=== PATIENT | female | born 1985 | race Caucasian/White ===

== ENCOUNTER 2023-07-09 13:23 | Inpatient (IN) ==
[2023-07-09] MEDS ORDERED: Nalbuphine 10 MG/ML 1 ML VIAL IV PRN (14:51)
[2023-07-09] MEDS ORDERED: Prochlorperazine 5 mg/ml 2 ml VIAL (10 mg) IV PRN (14:51)
[2023-07-09] MEDS ORDERED: Buffered Lidocaine 1% SYRIN 1 ml INTRADERM ONE (14:51)
[2023-07-09 16:30] LABS: Urine Benzodiazepine Screen None Detected (None Detect); Urine Cannabinoids Screen None Detected (None Detect); Urine Opiates Screen None Detected (None Detect)
[2023-07-09] MEDS: Lactated Ringers 1000 ml BAG 1,000 ML IV ONE (19:08)
[2023-07-09 19:23] LABS: ABS Basophils 0.1 10^3/uL (0.0-0.1); ABS Lymphocytes 0.7 10^3/uL (1.0-4.8); ABS Monocytes 0.8 10^3/uL (0.0-0.9); Eosinophil % 0.1 %; Hematocrit 37.2 % (35-45); Hemoglobin 12.8 g/dL (11.5-14.3); Lymphocyte % 4.3 %; Mean Corpuscular Hemoglobin 32.5 pg (27-33); Mean Corpuscular Hgb Conc 34.4 g/dL (31-36); Mean Corpuscular Volume 94.6 fL (80-97); Mean Platelet Volume 8.4 fL (7.5-11.2); Platelet Count 230 10^3/uL (150-450); Red Blood Count 3.93 10^6/uL (3.63-4.92); Red Cell Distribution Width 12.7 % (12-17); White Blood Count 16.6 10^3/uL (3.8-11.8)
[2023-07-09] MEDS ORDERED: Lidocaine 1.5% EPI 1:200,000 30 ML SDV ONE (20:32)
[2023-07-09] MEDS: OBEPIDURAL (200 ML) 200 ML EPIDURAL ONE (20:56)
[2023-07-09] MEDS: Lactated Ringers 1000 ml BAG 1,000 ML IV SCH (21:06)
[2023-07-09] MEDS ORDERED: Phenylephrine 40 mcg/mL 10mL (400mcg) SYRINGE IV PUSH PRN ×2 (21:07)
[2023-07-09] MEDS ORDERED: Sodium Citrate/Citric Acid LIQ 15 ML UDC PO PRN (21:07)
[2023-07-09] MEDS ORDERED: Lactated Ringers 1000 ml BAG 1,000 ML IV ONE (21:07)
[2023-07-09] MEDS ORDERED: OBEPIDURAL (200 ML) 200 ML EPIDURAL SCH (22:00)
[2023-07-10] MEDS ORDERED: ROPIVACAINE 5 MG/ML 30 ML BTL (0.5%) ONE (00:04)
[2023-07-10 01:04] LABS: Urine Appearance Clear; Urine Bilirubin Negative (Negative); Urine Blood 2+ (Negative); Urine Color Light-Yellow; Urine Glucose Negative (Negative); Urine Ketones 2+ (Negative); Urine Nitrite Negative (Negative); Urine Protein Negative (Negative); Urine Specific Gravity 1.012 (1.002-1.030); Urine Urobilinogen Negative (Negative)
[2023-07-10 01:07] LABS: Urine Bacteria Absent /HPF (Absent); Urine Red Blood Cell 3+(>10/hpf) /HPF (0-Trace); Urine Squamous Epithelial Cell Present /HPF (Absent); Urine White Blood Cell Trace(0-5/hpf) /HPF (0-Trace)
[2023-07-10] MEDS ORDERED: Oxytocin in LR 20,000 MILLI.UNIT/1,000 ML BAG IV ONE (01:57)
[2023-07-10] MEDS: Oxytocin in LR 20,000 MILLI.UNIT/1,000 ML BAG IV SCH (02:26)
[2023-07-10] MEDS: Lidocaine 1% VIAL 10 MG/ML 30 ML VIAL INJ PRN (02:26)
[2023-07-10] MEDS ORDERED: Glycerin ADULT 2.4 gm SUPP PR PRN (02:57)
[2023-07-10] MEDS ORDERED: Lactated Ringers 1000 ml BAG 1,000 ML IV SCH (03:00)
[2023-07-10] MEDS: Dibucaine 1% OINT 28.35 GM TUBE PR PRN (04:16)
[2023-07-10] MEDS: Witch Hazel PAD JAR TOPICAL PRN (04:16)
[2023-07-10 14:42] LABS: ABS Eosinophils 0.1 10^3/uL (0.0-0.5); ABS Lymphocytes 0.8 10^3/uL (1.0-4.8); ABS Monocytes 0.9 10^3/uL (0.0-0.9); ABS Neutrophils 12.1 10^3/uL (1.5-7.6); Eosinophil % 0.4 %; Hematocrit 28.6 % (35-45); Hemoglobin 9.9 g/dL (11.5-14.3); Lymphocyte % 5.8 %; Mean Corpuscular Hemoglobin 32.8 pg (27-33); Mean Corpuscular Hgb Conc 34.7 g/dL (31-36); Mean Corpuscular Volume 94.4 fL (80-97); Mean Platelet Volume 8.4 fL (7.5-11.2); Platelet Count 175 10^3/uL (150-450); Red Blood Count 3.03 10^6/uL (3.63-4.92); Red Cell Distribution Width 12.5 % (12-17); White Blood Count 13.9 10^3/uL (3.8-11.8)
[2023-07-12 07:24] VITALS: BP 124/76
== END 2023-07-12 18:18 | disposition home or self-care (01) | DRG 560 ==
LOC: MCHOBOUT 13:23 → MCHOB 15:08
PROVIDERS: ADMIT Obstetrics & Gynecology; ATTEND Obstetrics & Gynecology